=== PATIENT | female | born 1995 | race Caucasian/White ===

== ENCOUNTER 2020-11-25 00:01 | Inpatient (IN) ==
[2020-11-25] MEDS ORDERED: ONDANSETRON 4 MG/2 ML VIAL IV PRN ×2 (00:11→20:24)
[2020-11-25] MEDS ORDERED: BUTORPHANOL 2 MG/ML VIAL IV PRN (00:11)
[2020-11-25] MEDS ORDERED: LACTATED RINGERS 1,000 ML IV ONE (00:11)
[2020-11-25 00:45] LABS: Basophils % 0.2 % (0.0-0.8); Eosinophils # 0.1 10*3/uL (0.0-0.87); Eosinophils % 1.1 % (0.00-10.9); Hematocrit 31.8 VOL% (35.7-47.0); Immature Granulocytes Absolute 0.09 #; Lymphocytes # 2.1 10*3/uL (1.4-4.0); Lymphocytes % 22.3 % (21.3-54.2); Mean Corpuscular HGB Conc 31.4 GM/DL (32-36); Mean Corpuscular Volume 92.2 FL (87-102); Mean Platelet Volume 9.4 FL (9.6-12.0); Neutrophils % 68.4 % (38.7-73.9); Platelet Count 376 T/CUMM (130-400); Red Blood Count 3.45 MC/CUMM (3.8-5.5); Red Cell Distribution Width 15.7 % (9.3-17.3); White Blood Count 9.4 T/CUMM (4-12)
[2020-11-25 00:57] LABS: Albumin 2.8 G/DL (3.4-5.0); Bilirubin,Total 0.4 MG/DL (0.2-1.0); Calcium 9.1 MG/DL (8.5-10.1); Osmolality,Calculated 273.5 MOS/KG (273-304); Potassium 3.9 MMOL/L (3.5-5.1); Total Protein 6.8 G/DL (6.4-8.2)
[2020-11-25] MEDS: LACTATED RINGERS 1,000 ML IV SCH ×2 (08:32→12:51)
[2020-11-25] MEDS ORDERED: OXYTOCIN/LR 20 UNIT/1,000 ML BAG IV SCH (09:42)
[2020-11-25] MEDS ORDERED: CITRIC ACID/SODIUM CITRATE 30 ML UDCUP PO ONE (10:57)
[2020-11-25] MEDS ORDERED: FAMOTIDINE 20 MG/2 ML VIAL IV ONE (10:57)
[2020-11-25] MEDS ORDERED: ePHEDrine 50 MG/ML VIAL IV PRN (11:00)
[2020-11-25] MEDS ORDERED: LACTATED RINGERS 1,000 ML IV SCH ×2 (11:00→20:30)
[2020-11-25] MEDS ORDERED: ONDANSETRON 4 MG/2 ML VIAL IV ONE (11:00)
[2020-11-25] MEDS ORDERED: fentaNYL 2 MCG/ROPIV 0.2% EPID 100 ML EPIDURAL SCH (11:00)
[2020-11-25] MEDS ORDERED: NALOXONE 0.4 MG/ML VIAL IV PRN (11:00)
[2020-11-25] MEDS ORDERED: miSOPROStoL 200 MCG TABLET ONE (16:55)
[2020-11-25] MEDS ORDERED: METHYLERGONOVINE 0.2 MG/1 ML AMP ONE (16:55)
[2020-11-25] MEDS ORDERED: TRANEXAMIC ACID 1,000 MG/10 ML VIAL ONE (16:55)
[2020-11-25] MEDS ORDERED: CARBOPROST TROMETHAMINE 250 MCG/ML AMP IM ONE (16:56)
[2020-11-25] MEDS ORDERED: SODIUM CHLORIDE 0.9% 0 ML IV ONE (16:56)
[2020-11-25] MEDS ORDERED: ceFAZolin 2,000 MG/50 ML DUPLEX IV ONE (19:22)
[2020-11-25] MEDS ORDERED: LIDOCAINE MPF 2% /EPI 20 ML VIAL ONE (19:28)
[2020-11-25] MEDS ORDERED: ONDANSETRON 4 MG/2 ML VIAL ONE (19:43)
[2020-11-25] MEDS ORDERED: MORPHINE 10 MG/10 ML VIAL ONE (20:01)
[2020-11-25] MEDS ORDERED: ACETAMINOPHEN INJ 1,000 MG/100 ML VIAL IV ONE (20:03)
[2020-11-25] MEDS ORDERED: OXYTOCIN/LR 20 UNIT/1,000 ML BAG IV ONE (20:24)
[2020-11-25] MEDS ORDERED: RHO(D) IMMUNE GLOBULIN 300 MCG SYRINGE IM ONE (20:24)
[2020-11-25] MEDS ORDERED: IBUPROFEN 800 MG TABLET PO PRN (20:24)
[2020-11-25] MEDS ORDERED: ACETAMINOPHEN 325 MG TABLET PO PRN (20:24)
[2020-11-25 20:32] LABS: Cord Venous Blood HCO3 22.6 MMOL/L; Cord Venous Blood PO2 29.4
[2020-11-25] MEDS ORDERED: HYDROmorphone 2 MG/1 ML VIAL IV PRN (22:10)
[2020-11-26] MEDS: DOCUSATE SODIUM 100 MG CAPSULE PO SCH ×3 (00:11→22:14)
[2020-11-26] MEDS: ACETAMINOPHEN 500 MG TABLET PO SCH ×3 (02:24→16:50)
[2020-11-26 05:43] LABS: Basophils % 0.2 % (0.0-0.8); Eosinophils % 0.2 % (0.00-10.9); Hematocrit 29.2 VOL% (35.7-47.0); Hemoglobin 9.4 GM/DL (12.0-16.0); Immature Granulocytes % 0.5 %; Immature Granulocytes Absolute 0.06 #; Lymphocytes # 1.5 10*3/uL (1.4-4.0); Lymphocytes % 11.7 % (21.3-54.2); Mean Corpuscular HGB Conc 32.2 GM/DL (32-36); Mean Corpuscular Volume 91.3 FL (87-102); Mean Platelet Volume 9.6 FL (9.6-12.0); Monocytes % 7.9 % (1.7-12.7); Neutrophils % 79.5 % (38.7-73.9); Platelet Count 291 T/CUMM (130-400); Red Cell Distribution Width 15.8 % (9.3-17.3); White Blood Count 13.1 T/CUMM (4-12)
[2020-11-26] MEDS: MAGNESIUM HYDROXIDE SUSP 30 ML UDCUP PO PRN ×2 (09:38→23:08)
[2020-11-26] MEDS: SIMETHICONE CHEW 80 MG TABLET PO PRN ×2 (09:39→23:08)
[2020-11-26] MEDS: MULTIVITAMIN (PRENATAL) TABLET PO SCH (09:39)
[2020-11-26] MEDS ORDERED: ACETAMINOPHEN 500 MG TABLET ONE (15:51)
[2020-11-26] MEDS ORDERED: oxyCODONE/ACETAMINOPHEN 5-325 MG TABLET PO PRN (23:05)
[2020-11-26] MEDS: IBUPROFEN 800 MG TABLET PO PRN (23:53)
[2020-11-26] MEDS: oxyCODONE/ACETAMINOPHEN 5-325 MG TABLET PO PRN (23:53)
[2020-11-27] MEDS: oxyCODONE/ACETAMINOPHEN 5-325 MG TABLET PO PRN (06:46)
[2020-11-27] MEDS: IBUPROFEN 800 MG TABLET PO PRN (06:46)
[2020-11-27] MEDS: DOCUSATE SODIUM 100 MG CAPSULE PO SCH (09:12)
[2020-11-27] MEDS: MULTIVITAMIN (PRENATAL) TABLET PO SCH (09:13)
[2020-11-27 10:47] VITALS: BP 118/59
== END 2020-11-27 13:45 | disposition home or self-care (01) | DRG 788 ==
LOC: N.LD 00:01 → N.OB 11-26 00:51
PROVIDERS: ADMIT Obstetrics & Gynecology; ATTEND Obstetrics & Gynecology
PROC: LDCSECT (ICD-10-PCS; 2020-11-25 19:00)